=== PATIENT | female | born 1990 | race Caucasian/White ===

== ENCOUNTER 2018-06-30 12:43 | Emergency (ER) | payer OTHER ==
[~2018-06-30] VITALS: Ht 165.1 cm; Wt 74.3 kg
[~2018-06-30 12:43] MED LIST: DICY20TA59 PO; HYDR-3720 PO; IBUP-1542 PO; IBUP800T48 PO; METO10TA92 PO; PRENAT PO
[2018-06-30 13:09] VITALS: BP 112/66; PULSE 68; RESP 20; Ht 165.1 cm; Wt 74.3 kg
--- NOTE | 2018-06-30 15:39 | ERD ---
ER Documentation Chief Complaint Chief Complaint c/o vag bleed "clots" started last night. 6 weeks HPI 27-year-old female with EGA of 6 weeks by LMP 11 , presents to the emergency department, complaining of 1 day with mild vaginal spotting, associated with pelvic cramping pain and dysuria. The patient already es tablished care at a clinic located at [facility]. ROS All systems reviewed and are negative except as per history of present illness. Medications Home Meds Active Scripts Metoclopramide* (Reglan*) 10 Mg Tablet, 10 MG PO Q6H PRN for NAUSEA AND OR VOMITING, #30 TAB Prov:BEA MILES MD 10/31/15 Ibuprofen* (Motrin*) 800 Mg Tab, 800 MG PO Q8 PRN for PAIN AND OR ELEVATED TEMP, #30 TAB Prov:TRISHA MANUEL NP 10/24/15 Hydrocodone Bit-Acetaminophen* ([place]*) 7.5-325 Tablet, 2 TAB PO Q4H PRN for PAIN, #30 TAB Prov:CHRIS NAVA DO 10/21/15 Dicyclomine Hcl* (Bentyl*) 20 Mg Tablet, 20 MG PO QID, #30 TAB Prov:CHRIS NAVA DO 10/21/15 Ibuprofen* (Ibuprofen*) 600 Mg Tab, 600 MG PO Q6, #20 TAB 0 Refills Prov:SCARLET VALE MD 09/06/15 Reported Medications Multivit/Min/Fol Ac/Iron/Pren* ( S*) 1 Tab Tab, 1 TAB PO DAILY, TAB 08/27/15 Allergies Allergies: Coded Allergies: shrimp (Verified Allergy, Severe, RASHES ALL OVER THE BODY, 10/30/15) Uncoded Allergies: ALL NUTS (Allergy, Severe, RASHES, SHORTNESS OF BREATH, 10/30/15) PMhx/Soc History of Surgery: Yes (gall bladder, ercp stent) Anesthesia Reaction: Yes (pt states after her gallbladder surgery she had swollen lips from anesthesi) Hx Neurological Disorder: No Hx Respiratory Disorders: No Hx Cardiac Disorders: No Hx Psychiatric Problems: No Hx Miscellaneous Medical Probl: No Hx Alcohol Use: No Hx Substance Use: No Hx Tobacco Use: No Sm[facility] Family History: No diabetes, No coronary disease Physical Exam Vitals Vital Signs Date Temp Pulse Resp B/P (MAP) Pulse Ox O2 O2 Flow FiO2 Time Delivery Rate 06/30/18 96.9 68 20 112/66 100 13:09 (81) Physical Exam Const: No acute distress Head: Atraumatic Eyes: Normal Conjunctiva ENT: Normal External Ears, Nose and Mouth. Neck: Full range of motion. No meningismus. Resp: Clear to auscultation bilaterally Cardio: Regular rate and rhythm, no murmurs Abd: Soft, non tender, non distended. Normal bowel sounds Skin: No petechiae or rashes Back: No midline or flank tenderness Ext: No cyanosis, or edema Neur: Awake and alert Psych: Normal Mood and Affect Result Diagram: 06/30/18 1550 Results 24 hrs Laboratory Tests Test 06/30/18 15:48 06/30/18 15:50 Bedside Urine pH (LAB) 6.0 Bedside Urine Protein (LAB) Negative Bedside Urine Glucose (UA) Negative Bedside Urine Ketones (LAB) Negative Bedside Urine Blood 3+ Bedside Urine Nitrite (LAB) Negative Bedside Urine Leukocyte Esterase (L Negative White Blood Count 12.9 10^3/ul Red Blood Count 4.03 10^6/ul Hemoglobin 12.0 g/dl Hematocrit 36.2 % Mean Corpuscular Volume 89.8 fl Mean Corpuscular Hemoglobin 29.8 pg Mean Corpuscular Hemoglobin Concent 33.1 g/dl Red Cell Distribution Width 12.7 % Platelet Count 270 10^3/UL Mean Platelet Volume 9.4 fl Immature Granulocytes % 0.400 % Neutrophils % 64.4 % Lymphocytes % 27.0 % Monocytes % 6.1 % Eosinophils % 1.6 % Basophils % 0.5 % Nucleated Red Blood Cells % 0.0 /100WBC Immature Granulocytes # 0.050 10^3/ul Neutrophils # 8.3 10^3/ul Lymphocytes # 3.5 10^3/ul Monocytes # 0.8 10^3/ul Eosinophils # 0.2 10^3/ul Basophils # 0.1 10^3/ul Nucleated Red Blood Cells # 0.0 10^3/ul POC Beta HCG, Qualitative POSITIVE Procedures/MDM Vital signs stable, Physical exam unremarkable. Differential diagnosis include but not limited to: UTI, threatening , incomplete versus complete , ectopic , physiologic implantation bleeding, molar . Physical examination and clinical presentation most likely consistent with threatening . During the ED course the patient remained hemodynamically stable and asymptomatic. Results and clinical impression discussed with patient who agrees with management. The patient is stable to be treated outpatient and will be discharged home with close monitoring and follow-up in 2 days with her primary physician. Bed rest and pelvic rest recommended until further medical evaluation. The patient was instructed regarding the outcomes and the potential complications like severe bleeding and . If the patient presents severe bleeding or pain, she was instructed to return to the hospital immediately. Disclaimer: Inadvertent spelling and grammatical errors are likely due to EHR/dictation software use and do not reflect on the overall quality of patient care. Also, please note that the electronic time recorded on this note does not necessarily reflect the actual time of the patient encounter. Departure Diagnosis: Primary Impression: Vaginal bleeding Additional Impression: Threatened Condition: Stable Additional Instructions: Thank you very much for allowing us to participate in your care. Your health and safety is our top priority at [facility]. Call your primary care doctor TOMORROW for an appointment during the next 2-4 days and bring all the information and medications prescribed. Have prescriptions filled and follow precisely the directions on the label. If the symptoms get worse and your provider is unavailable, return to the Emergency Department immediately. MOHAN GONZALES MD Jun 30, 2018 15:39
== END 2018-06-30 17:20 | disposition home or self-care (01) ==
LOC: FTE 12:43
DX: O20.0 Threatened abortion (principal); Z3A.01 Less than 8 weeks gestation of pregnancy
CPT/HCPCS: 36415; 76801; 76817; 81003; 81025; 85025; Z7502